=== PATIENT | female | born 1980 | race Caucasian/White ===

== ENCOUNTER → 2023-03-25 08:00 | Outpatient (BNVA) | payer OTHER, SELFPAY | PROVIDERS: Family Provider Family Medicine; Visit Provider Obstetrics & Gynecology | DX: N92.0 Excessive and frequent menstruation with regular cycle (principal); N84.0 Polyp of corpus uteri | CPT/HCPCS: 76830 ==

== ENCOUNTER 2023-05-08 09:56 | Day surgery (SDC) | payer OTHER, SELFPAY ==
--- NOTE | 2023-05-06 21:37 | P.HP_ITS ---
Same Day Surgery H&P Indication for Procedure/HPI DATE OF PROCEDURE: May 06, 2023 CHIEF COMPLAINT/INDICATIONFOR SURGICAL PROCEDURE: abnormal uterine bleeding PREOP DIAGNOSIS: abnormal uterine bleeding PLANNED PROCEDURE: Operation Date: 05/08/23 11:35 Proposed Procedures p Hysteroscopy, endometrial sampling, possible endometrial polypectomy with M magedsure [id number], Placement of Intrauterine device 78557, Pap with HPV 37753, 73952,N92.0,Z30.9,F41.9(Not Applicable) - Orlando Reyes MD s poss Poylpectomy(Not Applicable) - Orlando Reyes MD s Placement of Intrauterine Device(Not Applicable) - Orlando Reyes MD s Pap with HPV(Not Applicable) - Orlando Reyes MD 42 y.o. Periods regular but heavy, lasting 5 days First three days very heavy, with severe cramps With large clots Has been occurring for many years + anemia Was started on iron by PCP Now scheduled for hysteroscopy, endometrial sampling, possible endometrial polyp ectomy; insertion of mirena IUD Medications/Allergies* Home Medications Medication Instructions Recorded Confirmed Type ferrous sulfate 325 mg (65 mg 325 mg PO DAILY 03/03/23 03/31/23 History iron) tablet (Feosol) lisinopril 10 mg tablet 10 mg PO DAILY 03/03/23 03/31/23 History metformin 500 mg tablet,extended tab PO 03/03/23 03/31/23 History release 24 hr omeprazole 20 mg capsule,delayed ea PO 03/03/23 03/31/23 History release rosuvastatin 10 mg tablet 10 mg PO DAILY 03/03/23 03/31/23 History trazodone 50 mg tablet 25 mg PO DAILY PRN 03/03/23 03/31/23 History venlafaxine 75 mg capsule,extended cap PO 03/03/23 03/31/23 History release 24 hr Allergies/Adverse Reactions Allergy/AdvReac Type Severity Reaction Status Date / Time prednisone Allergy Mild ALGY-Rash Verified 03/31/23 08:53 Pertinent History/Comorbid Conditions* Family History (Updated 03/03/23 @ 14:27 by Huey Dickerson) Diabetes Brother Heart disease Brother Denies family history of Colon cancer Ovarian cancer Breast cancer Hypertension Uterine cancer Thyroid disease Stroke Pertinent Exam Findings alert, oriented x 3, clear to auscultation bilaterally and regular rate & rhythm Recommendations Surgery/Procedure today Coding Level of Care Code Acute Code for Chg Fwd Diagnoses Time Spent (min) 20
[2023-05-07 12:37] VITALS: BMI 39.4
[2023-05-08] VITALS (9 sets, daily range): BP systolic 125–170; BP diastolic 72–109; PULSE 58–84; RESP 16–18; TEMP 36.2–36.4; O2SAT 97–100
[2023-05-08 10:40] LABS: OR HCG Qualitative Urine Negative (Negative)
[2023-05-08] MEDS: sodium chloride 0.9% 1,000 ML 30 ML IV (10:53)
[2023-05-08] MEDS: scopolamine 1.5 Patch 1 PATCH TRANSDERMA (11:05)
--- NOTE | 2023-05-08 11:20 | W.PM.OPSUD ---
Surgery/Procedure H&P Update DATE OF PROCEDURE: May 08, 2023 DATE H&P PERFORMED: 05/06/23 H&P UPDATE INFORMATION: I have reviewed H&P completed within last 30 days, I have examined patient prior to procedure and No changes to prior documentation PREOP DIAGNOSIS: abnormal uterine bleeding PLANNED PROCEDURE: Operation Date: 05/08/23 11:35 Proposed Procedures p Hysteroscopy, endometrial sampling, possible endometrial polypectomy with Myosure [id number], Placement of Intrauterine device 12463, Pap with HPV 18641, 13810,N92.0,Z30.9,F41.9(Not Applicable) - Orlando Reyes MD s poss Poylpectomy(Not Applicable) - Orlando Reyes MD s Placement of Intrauterine Device(Not Applicable) - Orlando Reyes MD s Pap with HPV(Not Applicable) - Orlando Reyes MD
[2023-05-08 11:32] LABS: Anion Gap 14.4 (5-19); Blood Urea Nitrogen 11 mg/dL (6-20); Calcium 8.5 mg/dL (8.5-10.5); Carbon Dioxide 23 mmol/L (22-29); Chloride 106 mmol/L (98-107); Glomerular Filtration Rate 91.3 mL/min (90-130); Glucose 78 mg/dL (65-115); Osmolality Calculated 286 mOsm/kg (285-295); Potassium 4.4 mmol/L (3.5-5.1); Sodium 139 mmol/L (136-145)
--- NOTE | 2023-05-08 11:34 | P.ANESASSM_ITS ---
Pre-Anesthetic Assessment Height/Weight: Height 1.65 m Weight 107.501 kg Temp Pulse Resp BP Pulse Ox O2 Del Method 97.6 F 84 18 159/102 97 Room Air 05/08/23 10:29 05/08/23 10:29 05/08/23 10:29 05/08/23 10:29 05/08/23 10:29 05/08/23 10:31 Preop Diagnosis: abnormal uterine bleeding Operation Date: 05/08/23 11:35 Proposed Procedures p Hysteroscopy, endometrial sampling, possible endometrial polypectomy with My osure 12832, Placement of Intrauterine device 43862, Pap with HPV 99166, 70428,N92.0,Z30.9,F41.9(Not Applicable) - Orlando Reyes MD s poss Poylpectomy(Not Applicable) - Orlando Reyes MD s Placement of Intrauterine Device(Not Applicable) - Orlando Reyes MD s Pap with HPV(Not Applicable) - Orlando Reyes MD Familial anesthetic complications: None Was Beta Danyel taken within 24 hours: N/A Was Clonidine taken within 24 hours: N/A Last intake: Intake Last Liquid Date 05/07/23 Last Liquid Time 21:00 Last Solid Date 05/07/23 Last Solid Time 13:00 Social No alcohol and No tobacco Exam alert, oriented x 3, clear to auscultation bilaterally and regular rate & rhythm Airway Mallampati: Class I Dentition: full CV/HEM Hypertension GI Gastroesophageal Reflux Disease Metabolic Hyperlipidemia Anesthetic Plan ASA status: 2 Anesthesia: General Risk of > 500 ml blood loss (7ml/kg in children): No Medications/Allergies Home Medications Medication Instructions Recorded Confirmed Last Taken Type ferrous sulfate 325 mg (65 mg 325 mg PO DAILY 03/03/23 05/07/23 05/07/23 History iron) tablet (Feosol) lisinopril 10 mg tablet 10 mg PO DAILY 03/03/23 05/07/23 05/07/23 History norethindrone 1.5 mg-ethinyl 1 tab PO DAILY #84 tabs 03/03/23 05/07/23 05/07/23 Rx estradiol 30 mcg(21)/iron 75 mg(7) tablet (Junel FE .5 (28)) omeprazole 20 mg capsule,delayed 20 ea PO 1XD 03/03/23 05/07/2305/07/23 History release rosuvastatin 10 mg tablet 10 mg PO DAILY 03/03/23 05/07/23 05/07/23 History trazodone 50 mg tablet 25 mg PO DAILY PRN Insomnia 03/03/23 05/07/23 05/06/23 History venlafaxine 75 mg capsule,extended 75 cap PO 1XD 03/03/23 05/07/23 05/07/23 History release 24 hr Allergies Allergy/AdvReac Type Severity Reaction Status Date / Time prednisone Allergy Mild ALGY-Rash Verified 05/07/23 12:37 Current Medications Generic Name Dose Route Start Last Admin Trade Name Freq PRN Reason Stop Dose Admin Sodium Chloride 1,000 mls @ 30 mls/hr 05/08/23 10:15 05/08/23 10:53 Sodium Chloride 0.9% IV 05/09/23 10:14 30 mls/hr .Q24H ALICJA Administration PFSH Anesthesia Family History Brother Heart disease Diabetes Denies family history of Colon cancer Ovarian cancer Breast cancer Hypertension Uterine cancer Thyroid disease Stroke Data Anesthesia 05/08/23 10:50 BMP 05/08/23 10:50 Sodium 139 Potassium 4.4 Chloride 106 Carbon Dioxide 23 BUN 11 Creatinine 0.7 Glucose 78 Calcium 8.5 Cardiac Studies: No Data to Display
--- NOTE | 2023-05-08 12:26 | SUR.OPER ---
LEONIDAS GILBERT [id number], EXP 02/2025, LOT#[id number]
[2023-05-08] MEDS: fentaNYL 50 mcg/mL INJ 2mL IVP (12:30)
--- NOTE | 2023-05-08 13:05 | PM.OP ---
Operative Report Date of procedure: May 08, 2023 Pre-op diagnosis: menorrhagia Post-op diagnosis: same Post-op findings: normal endometrial cavity No polyps / fibroids Minimal endometrial tissue Procedure done: hysteroscopy Curettage of uterus Placement of mirena IUD Pap done prior to prepping the patient Specimens removed/disposition: endometrial tissue Surgeon: Orlando Reyes MD Anesthesia: MAC Estimated blood loss (mL): 0 Complications: none Condition: stable Disposition: PACU Brief History: 42 y.o. Periods regular but heavy, lasting 5 days First three days very heavy, with severe cramps With large clots Has been occurring for many years + anemia Procedure: Informed consent signed. Patient was taken to the operating room. Anesthesia was induced. Patient was placed in dorsolithotomy position, Pap done, prepped and draped for hysteroscopy. A bivalve speculum was placed in the vagina. The anterior lip of the cervix was grasped with a sharp-toothed tenaculum. The cervix was serially dilated with Hegar dilators. . A hysteroscope was placed into the endometrial cavity. The endometrial cavity was seen to be normal. There were no polyps or fibroids. There was minimal endometrial tissue. The hysteroscope was then removed. Endometrial curettage was done with a sharp curette. Endometrial tissue was sent to pathology. The mirena IUD was then prepared, placed into the endometrial cavity and deployed. A 3-4 cm string was left at the cervical os. The sharp-toothed tenaculum was removed. There was no bleeding from the endometrial cavity or cervix. The patient was then placed supine and awakened and taken to the PACU. Postop condition: stable EBL: none Sponge and instruments counts were normal x 2 Complications: none
--- NOTE | 2023-05-08 13:15 | ANE.PACU2 ---
Inpatient post-anesthesia follow up: Airway intact: Yes Vital signs: Temperature 97.1 F Pulse Rate 67 Respiratory Rate 18 Blood Pressure 162/78 Pulse Oximetry 100 Oxygen Delivery Me thod Room Air Oxygen Flow Rate Fraction of Inspir ed Oxygen Hydration adequate: Yes Nausea and vomiting: No Pain level: 1 Mental status: Baseline
[2023-05-15 12:10] LABS: Source: Cervix
== END 2023-05-08 13:16 | disposition home or self-care (01) ==
PROVIDERS: Anesthesiology; PCP Family Medicine; Visit Provider Obstetrics & Gynecology
PROC: 0UDB8ZZ Extraction of Endometrium, Via Natural or Artificial Opening Endoscopic (ICD-10-PCS; CPT 58558; principal; 2023-05-08 11:25)
PROC: (CPT 58300; 2023-05-08 11:25)
PROC: (CPT 58300; 2023-05-08 11:25)
PROC: 8E0UXY7 Examination of Female Reproductive System (ICD-10-PCS; CPT 57410; 2023-05-08 11:25)
DX: N92.0 Excessive and frequent menstruation with regular cycle (principal); I10 Essential (primary) hypertension; K21.9 Gastro-esophageal reflux disease without esophagitis; E78.5 Hyperlipidemia, unspecified; Z79.84 Long term (current) use of oral hypoglycemic drugs
CPT/HCPCS: 58300; 58558; 36415; 80048; 81025; 84703; 87624; 88305; J1200; J2405; J2704; J3010; J7030

== ENCOUNTER 2023-10-13 13:30 | Outpatient (CLI) | payer OTHER, SELFPAY | END 2023-10-13 13:31 | disposition home or self-care (01) | LOC: SLEEP 10-14 10:29 | PROVIDERS: PCP Family Medicine; Visit Provider Family Medicine | DX: G47.33 Obstructive sleep apnea (adult) (pediatric) (principal) | CPT/HCPCS: G0399 ==